=== PATIENT | male | born 1955 | race Caucasian/White ===

== ENCOUNTER 2018-04-30 12:39 | Emergency (ER) | payer OTHER ==
[2018-04-30 12:50] VITALS: BP 175/101
--- NOTE | 2018-04-30 13:13 | EDPHY ---
H & P Time Seen by Provider: 04/30/18 12:51 HPI/ROS: HPI Lump on left arm. 62-year-old male by private vehicle. This patient has been in [place] for 2 weeks. He lives in both [place] and [place]. He reports that a few days ago he noticed a small lump on the mid ventral ulnar aspect of his left forearm. He tells me that it feels harder been a lipoma that he has and wanted to have it evaluated. He denies any other associated signs or symptoms. He denies any pain associated with this lump. No erythema or swelling. No loss of sensation or weakness distal to it. ROS: Constitutional: No fever, no chills. No weakness. Musculoskeletal: As above. Skin: No rashes. As above. Neurological: No focal weakness or altered sensation. Past medical history: GERD, tonsillectomy, surgery for fistula. He does not have a primary care physician in [place]. Social history: Nonsmoker. Here by himself. As above. No alcohol. Physical Exam: General Appearance: Alert, no distress. This patient is responding to questions appropriately and in full sentences. This patient appears well- hydrated and well-nourished. Eyes: Pupils equal and round no pallor or injection. No lid edema, erythema or injection. Left upper extremity exam: He has a freely movable firm nodule left ventral ulnar aspect forearm. No associated erythema or warmth. No tenderness on palpation. There is no fluctuance or other evidence of infection. It is not expanding. It is not pulsatile. It is consistent with a lipoma or possibly a ganglion cyst. The left upper extremity is neurovascularly intact. Neurological: Motor sensory function is grossly intact. Cranial nerves are normal. Gait is normal. Skin: Warm and dry, no rashes. Extremities are symmetrical. All joints range without pain or impingement. Database: EKG: Imaging: Procedures: Emergency department course: Triage vital signs reviewed and are normal. His presentation is consistent with a lipoma verses a ganglia on cyst. I do not feel it requires emergent treatment at this time. Plan will be to have him follow up with a primary care physician for re-evaluation next week and further management as needed. He is in agreement with this. Return to emergency department precautions discussed with him. All of his questions were answered. He was discharged from the emergency department in good condition. Differential Diagnosis: The differential diagnosis on this patient includes but is not limited to lipoma , ganglia on cyst. Abscess, malignancy, arteriovenous fistula, DVT, compartment syndrome unlikely. This represents a partial list of diagnoses considered. These considerations are based on history, physical exam, past history, reassessment and diagnostic testing. Smoking Status: Never smoked Constitutional: Initial Vital Signs Temperature (C) 36.8 C 04/30/18 12:43 Heart Rate 61 04/30/18 12:43 Respiratory Rate 16 04/30/18 12:43 Blood Pressure 175/101 H 04/30/18 12:43 O2 Sat (%) 95 04/30/18 12:43 O2 Delivery Mode Room Air Allergies/Adverse Reactions: No Known Allergies Allergy (Verified 04/30/18 12:42) Home Medications: Medication Instructions Recorded Omeprazole 04/30/18 Departure - Departure Disposition: Home, Routine, Self-Care Clinical Impression: Localized swelling, mass and lump, left upper limb Condition: Good Instructions: Soft Tissue Mass (ED) Additional Instructions: Read and follow provided instructions. Follow-up a primary care physician, Dr. Rosi Stearns or 1 of her partners, next week for re-evaluation of your left forearm. Return to the emergency department for redness, swelling to the area, worsening pain or other serious concerns. Referrals: Rosi Stearns MD [Medical Doctor] - As per Instructions
== END 2018-04-30 13:23 | disposition home or self-care (01) ==
LOC: CED 12:39
DX: R22.32 Localized swelling, mass and lump, left upper limb (principal)